=== PATIENT | female | born 1970 | race Hispanic/Latino ===

== ENCOUNTER 2023-06-17 10:59 | Emergency (ER) | payer MEDICAID ==
[2023-06-17] MEDS: Ketorolac 30 MG/ML SDV IVPUSH ONE (11:20)
[2023-06-17] MEDS: Ondansetron 4 MG/2 ML SDV IVPUSH ONE (11:20)
[2023-06-17] MEDS: Alum Hydro/Mag Hydro/Simeth XS 15 ML, Metoclopramide 5 MG, Lidocaine 2% 5 ML PO ONE (11:20)
[2023-06-17] MEDS: Sodium Chloride 0.9% 1,000 ML IV ONE (11:20)
[2023-06-17 11:33] LABS: BASOPHILS ABSOLUTE AUTO 0.02 K/uL (0.00-0.20); BASOPHILS PERCENT AUTO 0.1 % (0.0-1.0); EOSINOPHILS ABSOLUTE AUTO 0.03 K/uL (0.00-0.45); EOSINOPHILS PERCENT AUTO 0.2 % (0.0-6.0); HEMATOCRIT 40.6 % (37.0-47.0); HEMOGLOBIN 13.7 g/dL (12.0-16.0); IMMATURE GRAN ABSOLUTE AUTO 0.07 K/uL (0.00-0.05); IMMATURE GRAN PERCENT AUTO 0.5 % (0.0-0.4); LYMPHOCYTES ABSOLUTE AUTO 1.96 K/uL (1.00-4.80); LYMPHOCYTES PERCENT AUTO 13.5 % (24.0-44.0); MEAN CORPUSCULAR HEMOGLOBIN 29.6 pg (28.0-32.0); MEAN CORPUSCULAR HGB CONC 33.7 g/dL (32.0-36.0); MEAN CORPUSCULAR VOLUME 87.7 fL (83.0-99.0); MEAN PLATELET VOLUME 11.5 fL (9.4-12.3); MONOCYTES ABSOLUTE AUTO 1.15 K/uL (0.00-0.80); MONOCYTES PERCENT AUTO 7.9 % (0.0-8.0); NEUTROPHILS ABSOLUTE AUTO 11.28 K/uL (1.80-7.70); NEUTROPHILS PERCENT AUTO 77.8 % (41.0-71.0); PLATELET COUNT,PLT 247 K/uL (150-400); RED BLOOD CELL COUNT 4.63 M/uL (4.10-5.30); WHITE BLOOD CELL COUNT,WBC 14.51 K/uL (3.9-11.3)
[2023-06-17 12:05] LABS: A/G RATIO 0.6 (0.9-1.6); CARBON DIOXIDE,CO2 26.7 mmol/L (21.0-32.0); CREATININE 1.3 mg/dL (0.6-1.0); EST CRCL DRUG DOSING (CG) 41.4 mL/min; POTASSIUM,K 3.3 mmol/L (3.5-5.1); PROTEIN TOTAL,TP 8.2 g/dL (6.4-8.2)
[2023-06-17] MEDS: Iopamidol 755 MG/ML 500 ML Multipack Bottle IVPUSH STA (12:24)
[2023-06-17 12:59] LABS: APPEARANCE,URINE SLT CLOUDY; BILIRUBIN,URINE NEGATIVE (NEGATIVE); COLOR,URINE YELLOW; GLUCOSE,URINE NEGATIVE (NEGATIVE); KETONES,URINE NEGATIVE (NEGATIVE); LEUKOCYTE ESTERASE,URINE MODERATE (NEGATIVE); NITRITE,URINE NEGATIVE (NEGATIVE); OCCULT BLOOD,URINE SMALL (NEGATIVE); PROTEIN,URINE NEGATIVE (NEGATIVE); UROBILINOGEN,URINE 0.2 EU/dL (<2.0)
[2023-06-17] MEDS: cefTRIAXone 1 GM in Sodium Chloride 0.9% 50 ML IV ONE (13:06)
[2023-06-17 13:16] LABS: BACTERIA,URINE 1+ (NEGATIVE); EPITHELIAL CELLS,URINE MODERATE (NONE-FEW)
== END 2023-06-17 13:50 | disposition home or self-care (01) ==
LOC: MW.ED 10:59
DX: N12 Tubulo-interstitial nephritis, not specified as acute or chronic (principal); Z79.899 Other long term (current) drug therapy; Z75.8 Other problems related to medical facilities and other health care
CPT/HCPCS: 36415; 74177; 80053; 81001; 81003; 81025; 83690; 85025; 87086; 96361; 96365; 96375; 99284; A9270; J0696; J1885; J2405; J3490; J7030; Q9967